=== PATIENT | male | born 1975 | race African-American/Black ===

== ENCOUNTER 2020-03-17 16:01 | Emergency (ER) | payer OTHER, MEDICAID ==
[~2020-03-17] VITALS: Ht 180.3 cm; Wt 83.0 kg
[2020-03-17] MEDS ORDERED: SODIUM CHLORIDE 0.9% 1,000 ML IV ONE (16:56)
[2020-03-17 17:18] VITALS: BP 109/83
== END 2020-03-17 17:32 | disposition home or self-care (01) ==
LOC: ER 16:01
DX: S01.81XA Laceration without foreign body of other part of head, initial encounter (principal); Y08.89XA Assault by other specified means, initial encounter; Y93.89 Activity, other specified; Y92.89 Other specified places as the place of occurrence of the external cause; Y99.8 Other external cause status; F10.129 Alcohol abuse with intoxication, unspecified; Y90.8 Blood alcohol level of 240 mg/100 ml or more
CPT/HCPCS: 36415; 80320; 93005; 99284; J7030; G0480